=== PATIENT | female | born 1960 | race Caucasian/White ===

== ENCOUNTER → 2024-07-11 | Outpatient (CLI) | payer BC, MEDICARE, SELFPAY ==
[2024-07-11 08:29] LABS: Creatinine MALB Rnd Ur 88 mg/dL (30-125); Microalbumin, Random Urine < 3 mg/L (0-300)
[2024-07-11 08:35] LABS: Alanine Aminotransferase 28 U/L (10-49); Albumin, Serum 4.8 gm/dL (3.4-4.8); Albumin/Globulin Ratio 2.4 (1.2-2.2); Alkaline Phosphatase 87 U/L (46-116); Anion Gap 7 (7-16); Aspartate Amino Transferase 22 U/L (0-34); BUN/Creatinine Ratio 27 Ratio (12-20); Blood Urea Nitrogen 19 mg/dL (9-23); Calcium 9.9 mg/dL (8.3-10.6); Calcium (Corrected) 9.9 mg/dL (8.5-10.1); Carbon Dioxide 29.6 mMol/L (20.0-31.0); Cardiac Risk Estimate 1.9 RATIO (3.7-5.6); Chloride 102 mMol/L (98-107); Cholesterol 164 mg/dL (132-200); Creatinine (Component) 0.7 mg/dL (0.6-1.3); Free T4 (Free Thyroxine) 1.18 ng/dL (0.89-1.76); Glucose 101 mg/dL (74-106); HDL Cholesterol 87 mg/dL (40-60); LDL Cholesterol,Calculated 66 mg/dL (0-130); Osmolality,Calculated 279 (275-295); Potassium 4.8 mMol/L (3.4-5.1); Sodium 139 mMol/L (136-145); Thyroid Stimulating Hormone 1.18 uIU/mL (0.55-4.78); Total Protein 6.8 gm/dL (5.7-8.2); Triglycerides 57 mg/dL (30-150); Vitamin D 25 Hydroxy Total 56.2 ng/mL (7.3-40.2); eGFR > 60 See Note
[2024-07-11 08:38] LABS: Basophils % (Auto) 1 % (0-2.5); Eosinophils # (Auto) 0.1 Thou/mm3 (0.0-0.5); Eosinophils % (Auto) 1 % (0-10); Hematocrit 43.2 % (36.0-46.0); Hemoglobin 14.4 g/dL (12.0-16.0); Immature Granulocytes % (Auto) 0 % (0-0); Immature Granulocytes Auto 0.01 Thou/mm3 (0.00-0.00); Lymphocytes # (Auto) 2.7 Thou/mm3 (1.0-4.8); Lymphocytes % (Auto) 41 % (10-50); Mean Corpuscular HGB Conc 33.3 g/dl (31.0-37.0); Mean Corpuscular Hemoglobin 31.1 pg (25.0-35.0); Mean Corpuscular Volume 93 fL (80-100); Monocytes # (Auto) 0.6 Thou/mm3 (0.0-0.8); Monocytes % (Auto) 9 % (0-12); Neutrophils # (Auto) 3.2 Thou/mm3 (1.8-7.7); Neutrophils % (Auto) 48 % (37-80); Nucleated Red Blood Cell % 0 /100 WBC (0); Platelet Count 171 Thou/mm3 (140-440); RDW Standard Deviation 45.8 fL (36.4-46.3); Red Blood Count 4.63 Miln/mm3 (4.00-5.20); White Blood Count 6.5 Thou/mm3 (3.6-11.0)
== END | disposition home or self-care (01) ==
PROVIDERS: PCP Internal Medicine Hospice and Palliative Medicine; Referring Provider Nurse Practitioner Family; Visit Provider Nurse Practitioner Family
DX: E78.5 Hyperlipidemia, unspecified (principal); I10 Essential (primary) hypertension; R53.83 Other fatigue
CPT/HCPCS: 36415; 80053; 80061; 82043; 82306; 82570; 84439; 84443; 85025

== ENCOUNTER → 2024-08-01 | Outpatient (CLI) | payer BC, MEDICARE, SELFPAY ==
[2024-08-01 09:36] LABS: Basophils # (Auto) 0.1 Thou/mm3 (0.0-0.2); Basophils % (Auto) 1 % (0-2.5); Eosinophils # (Auto) 0.1 Thou/mm3 (0.0-0.5); Eosinophils % (Auto) 1 % (0-10); Hematocrit 40.5 % (36.0-46.0); Hemoglobin 13.6 g/dL (12.0-16.0); Immature Granulocytes % (Auto) 1 % (0-0); Immature Granulocytes Auto 0.05 Thou/mm3 (0.00-0.00); Lymphocytes # (Auto) 2.8 Thou/mm3 (1.0-4.8); Lymphocytes % (Auto) 28 % (10-50); Mean Corpuscular HGB Conc 33.6 g/dl (31.0-37.0); Mean Corpuscular Hemoglobin 31.4 pg (25.0-35.0); Mean Corpuscular Volume 94 fL (80-100); Monocytes # (Auto) 0.5 Thou/mm3 (0.0-0.8); Monocytes % (Auto) 5 % (0-12); Neutrophils # (Auto) 6.4 Thou/mm3 (1.8-7.7); Neutrophils % (Auto) 65 % (37-80); Nucleated Red Blood Cell % 0 /100 WBC (0); Platelet Count 160 Thou/mm3 (140-440); RDW Standard Deviation 46.8 fL (36.4-46.3); Red Blood Count 4.33 Miln/mm3 (4.00-5.20); White Blood Count 9.8 Thou/mm3 (3.6-11.0)
[2024-08-04 11:20] LABS: A. alternata (M6) IgE <0.10 kU/L; A. fumigatus (M3) Class 0; A. fumigatus (M3) IgE <0.10 kU/L; Alder (T2) Class 0; Alder (T2) IgE <0.10 kU/L; Bermuda Grass (G2) Class 0; Bermuda Grass (G2) IgE <0.10 kU/L; Birch (T3) Class 0; Birch (T3) IgE <0.10 kU/L; C. herbarum (M2) Class 0; C. herbarum (M2) IgE <0.10 kU/L; Cat Dander (e1) Class 0; Cat Dander (e1) IgE <0.10 kU/L; Cockroach (I6) IgE <0.10 kU/L; Common Pigweed (W14) IgE <0.10 kU/L; Common Ragweed (W1) Class 0; Common Ragweed (W1) IgE <0.10 kU/L; D. farinae (D2) Class 0; D. farinae (D2) IgE <0.10 kU/L; D. pteronyssinus (D1) Class 0; D. pteronyssinus (D1) IgE <0.10 kU/L; Dog Dander (E5) IgE <0.10 kU/L; EBV VCA Ab (IgM) <36.00 U/mL; Elm (T8) IgE <0.10 kU/L; Mountain Cedar (T6) Class 0; Mountain Cedar (T6) IgE <0.10 kU/L; Mouse Ur Prot (E72) IgE <0.10 kU/L; Mugwort (W6) Class 0; Mugwort (W6) IgE <0.10 kU/L; Oak White (T7) Class 0; Oak White (T7) IgE <0.10 kU/L; Olive Tree (T9) Class 0; Olive Tree (T9) IgE <0.10 kU/L; P. notatum (M1) Class 0; P. notatum (M1) IgE <0.10 kU/L; Russian Thistle (W11) Class 0; Russian Thistle (W11) IgE <0.10 kU/L; Sycamore (T11) IgE <0.10 kU/L; Timothy Grass (G6) IgE <0.10 kU/L; White Mulberry (T70) IgE <0.10 kU/L
[2024-08-05 06:46] LABS: A. alternata (M6) Class 0; Cockroach (I6) Class 0; Common Pigweed (W14) Class 0; Dog Dander (E5) Class 0; EBV Ab Interpretation PAST; Elm (T8) Class 0; IgE, Serum* 24 kU/L (114 OR LESS); IgE, Total, Serum 25 kU/L (114 OR LESS); Mouse Ur Prot (E72) Class 0; Parvovirus B19 Ab IgG 2.7; Parvovirus B19 Ab IgM 0.3; Sycamore (T11) Class 0; Timothy Grass (G6) Class 0; White Mulberry (T70) Class 0
== END | disposition home or self-care (01) ==
LOC: COPL 08:08
PROVIDERS: PCP Internal Medicine Hospice and Palliative Medicine; Referring Provider Internal Medicine Hospice and Palliative Medicine; Visit Provider Internal Medicine Hospice and Palliative Medicine
DX: R21 Rash and other nonspecific skin eruption (principal)
CPT/HCPCS: 36415; 82785; 85025; 86003; 86664; 86665; 86747

== ENCOUNTER → 2024-08-02 | Outpatient (CLI) | payer BC, MEDICARE, SELFPAY ==
--- NOTE | 2024-08-02 | XR_ITS ---
Examination: Screening digital mammography, bilateral Computer aided detection 3-D breast Tomosynthesis, bilateral Date and time of exam: August 02, 2024 1332 hours Compared to mammograms dating to March 03, 2022 Indication: Screening Technique: Nonmagnified MLO, CC views of the breasts to been obtained, reconstructed from 3-D Tomosynthesis images. R2 computer aided detection program utilized for evaluation of suspicious masses and/or abnormal calcifications. 3-D Tomosynthesis images obtained. Findings: The breasts are heterogeneously dense, which may obscure small masses 12 mm nodule indistinct margins inner upper right breast Benign calcifications Impression: BI-RADS Category 0: Incomplete: Need additional imaging evaluation 12 mm nodule indistinct margins inner upper right breast, recommend follow-up spot tomographic views of this mass as well as right breast sonography to complete workup.
--- NOTE | 2024-08-02 | XR_ITS ---
Examination: Abdomen sonogram, complete Date and time of exam: August 02, 2024 1254 hours INDICATIONS: Left lower quadrant abdominal pain beginning several weeks ago. Technique: Multiple real-time grayscale transabdominal sonographic images of the abdomen have been obtained. Findings: Absent gallbladder Normal common bile duct 0.3 cm Pancreatic head 1.2 cm Aorta not enlarged Liver 12.8 cm fatty infiltration smooth contour no focal liver lesions Normal hepatopedal portal venous flow Patent IVC Right kidney 10.6 x 4.6 x 4.9 cm cortex 1.2 cm Left kidney 10.6 x 5.8 x 5.0 cm cortex 2.5 cm Mild bilateral renal parenchymal scar formation Spleen 10.2 cm IMPRESSION: Absent gallbladder Normal common bile duct Mild bilateral renal parenchymal scar formation
--- NOTE | 2024-08-02 12:20 | XR_ITS ---
Examination: Bone densitometry Date and time of exam:August 02, 2024 1235 hours INDICATIONS: Menopause age 43 vitamin D 3 years Technique: Lumbar spine and hip total bone mineralization values of an calculated. Peak reference and age match control results have been displayed. Findings: Lumbar spine total bone mineralization is0.864 gm/cm2. This is 1.7 standard deviations below peak reference. This is 0.2 standard deviations above age-matched controls. Hip total bone mineralization is 0.899 gm/cm2 This is 0.4 standard deviations below peak reference. This is 0.9 standard deviations above age-matched controls Impression: There is osteopenia based on lumbar spine measurements. There is osteopenia based on hip measurements
--- NOTE | 2024-08-02 12:45 | XR_ITS ---
Examination: Pelvic ultrasound, transabdominal, complete Technique: Transabdominal ultrasound of the pelvis performed using grayscale imaging Date and time of exam: August 02, 2024 1304 hours INDICATIONS: Left pelvic pain beginning several months ago FINDINGS: Uterus 7.1 x 3.9 x 5.1 cm, diffuse calcifications No discrete uterine mass Ovaries obscured by bowel gas IMPRESSION: No discrete uterine mass Ovaries obscured by bowel gas
--- NOTE | 2024-08-02 12:45 | XR_ITS ---
Examination: Transvaginal ultrasound of the pelvis, complete Technique: Transvaginal sonographic images pelvis performed using de [place] santos scale imaging Exam date and time: August 02, 2024 1312 hours INDICATIONS: Left lower abdominal pain beginning a few months ago FINDINGS: Uterus 7.4 x 3.6 x 3.7 cm Diffuse uterine calcifications, the largest 9 mm Left uterine body solid mass 11 x 10 x 8 mm. Ovaries obscured by bowel gas Endometrial stripe 0.2 cm IMPRESSION: Limited study Small uterine area of fibroid degeneration in the left body the uterus 10 x 11 x 8 mm
== END | disposition home or self-care (01) ==
PROVIDERS: PCP Internal Medicine Hospice and Palliative Medicine; Referring Provider Nurse Practitioner Family; Visit Provider Nurse Practitioner Family
DX: Z12.31 Encounter for screening mammogram for malignant neoplasm of breast (principal); N63.12 Unspecified lump in the right breast, upper inner quadrant; M85.89 Other specified disorders of bone density and structure, multiple sites; N28.89 Other specified disorders of kidney and ureter; Z90.49 Acquired absence of other specified parts of digestive tract; R10.2 Pelvic and perineal pain; D25.9 Leiomyoma of uterus, unspecified
CPT/HCPCS: 76700; 76830; 76856; 77063; 77067; 77080

== ENCOUNTER 2024-09-11 10:46 | Emergency (ER) | payer BC, MEDICARE, SELFPAY ==
[2024-09-11 11:08] VITALS: BP 178/81; PULSE 60; RESP 16; TEMP 36.8; O2SAT 98; BMI 24.9
--- NOTE | 2024-09-11 11:11 | XR_ITS ---
Examination: Left elbow 3 views Technique: Elbow AP, oblique, lateral 3 views Exam date and time: September 11, 2024 1018 hours INDICATIONS: Patient fell today with injury to the elbow, elbow pain FINDINGS: No acute fracture. No dislocation No opaque foreign body IMPRESSION: No acute fracture.
--- NOTE | 2024-09-11 11:11 | PD.EDUPEX ---
Upper Extremity Injury RME/HPI General Chief Complaint: Extremity Injury, Upper Stated Complaint: LEFT ARM PAIN Time Seen by Provider: 09/11/24 11:11 Arrival date/time: 09/11/24 10:46 64 year old female present to emergency room with c/o of GLF today at home, injury left elbow. Pt denies any blood thinner use, head/neck injury, syncope, loc, chest pain or shortness of breath, nausea/vomiting. LOCATION: elbow SEVERITY: Symptoms are described as being severe with limitations on activities of daily living QUALITY: Symptoms are described as being dull or achy CONTEXT: GLF today at home land on elbow DURATION/TIMING: The symptoms started approximately immediately prior to arrival ago and have been constant this then. ASSOCIATED SYMPTOMS: The patient is unable to identify any other associated symptoms. MODIFYING FACTORS: The patient is unable to identify any alleviating or aggravating symptoms. PERTINENT ROS: no fevers, no headache, no neck or chest pain, no unexplained nausea or vomiting, no focal neurological deficits REVIEW OF SYSTEMS: See History of Present Illness - with the exception of those mentioned in the history of present illness, all other systems reviewed and reported as negative GENERAL: In general the patient is awake, interactive, in an emergency department gurney. HEAD/EYES/EARS/NOSE/THROAT: normo-cephalic, atraumatic, mucus membranes are moist, anicteric, palpebral conjunctiva is pink, trachea is midline. CARDIOVASCULAR: regular rate and regular rhythm, no murmurs, heart sounds are not distant, strong pulses in all four extremities that are equal and symmetric bilateral upper and lower extremities, normal capillary refill. NEUROLOGICAL: cranio-facial features are symmetric, moves all four extremities equally without obvious limitations or weakness. EXTREMITY: left elbow tenderness, decrease range of motion, no shoulder, wrist or hand tenderness, no tenderness to palpation over the long bones or large joints of the bilaterallower extremities, no joint swelling, no joint erythema, no signs of trauma, no unilateral leg swelling and no peripheral edema. SKIN: warm, dry, well-perfused, no jaundice, no rash, no telangiectasias or petechia. PSYCH: calm, cooperative, no evidence of psychosis or agitation Related Data Home Medications ?Medication ?Instructions ?Recorded ?Confirmed losartan 50 mg tablet 50 mg PO QDAY 08/22/21 08/23/21 Allergies Allergy/AdvReac Type Severity Reaction Status Date / Time morphine Allergy Intermediate Rash Verified 09/11/24 10:48 Course Course Course Narrative: xray to rule out fracture vs contusion vs strain/sprain Quality Measures none Orders Category Date Time Status sling [Splint / Immobilizer] STAT Care 09/11/24 12:37 Ordered XR elbow comp LT min 3V Stat Exams 09/11/24 11:11 Completed Reevaluation(s) Reevaluation #1: pt is comfortable to go home, sling placed, rice protocol Vital Signs Vital signs: Vital Signs Temperature 98.2 F 09/11/24 11:08 Pulse Rate 60 09/11/24 11:08 Respiratory Rate 16 09/11/24 11:08 Blood Pressure 178/81 H 09/11/24 11:08 Pulse Oximetry (%) 98 09/11/24 11:08 Oxygen Delivery Method Room Air 09/11/24 11:08 Extremity Injury Patient data [facility] Clinical information provided by:: patient Social determinants that could affect healthcare access:: none Patient has the following chronic illnesses:: HTN How is presenting disease/condition affected by chronic disease/condition?: uneffected by Evaluation data The following diagnostics were reviewed and interpreted by me:: radiology exam(s) Lab and/or radiology exams considered but not ordered:: n/a Interpretation Summary: xray: FINDINGS: No acute fracture. No dislocation No opaque foreign body IMPRESSION: No acute fracture. Medications / Prescriptions Medications or Prescriptions considered but not ordered:: n/a Medication administrations:: n/a Consultations Consultation(s) initiated? (list below): No Diagnosis Upper Extremity Injury Differential Diagnosis: other (elbow contusion, fracture, strain/sprain ) Most likely diagnosis given after review of the tests above:: elbow contusion Admission Indicated Admission indicated?: not indicated Admission Request Was there a request for admission?: No Disposition Plan Disposition Plan: Discharge Discharge Attestation Discharge Attestation: The patient and all family members were given an opportunity to ask questions and understood the discharge instructions. Discharge instructions specifically effects, indications for sooner follow up or return to the emergency department, and the expected course of current diagnosis. Patient condition: Stable Discharge Plan Plan Patient Disposition: HOME (Self Care) Health Concerns: Follow with PMD as directed Take tylenol or motrin as need Return to ED if sx worsen Prescriptions/Referrals Prescriptions/Med Rec: No Action losartan 50 mg Tablet 50 mg PO QDAY Referrals: Alan Medina MD [Primary Care Provider] - In 1 week Problem List Clinical Impression: Contusion of elbow, left Patient/Caregiver Discharge Instructions Education Materials: ED Contusion, Elbow Print Language: Jamaican Stand Alone Forms: Jane Award Info., Patient Portal Info Letter
== END 2024-09-11 13:08 | disposition home or self-care (01) ==
PROVIDERS: Emergency Provider Emergency Medicine; PCP Internal Medicine Hospice and Palliative Medicine
DX: S50.02XA Contusion of left elbow, initial encounter (principal); W19.XXXA Unspecified fall, initial encounter; Y92.009 Unspecified place in unspecified non-institutional (private) residence as the place of occurrence of the external cause
CPT/HCPCS: 73080; 99283; A4565